=== PATIENT | male | born 1965 | race Hispanic/Latino ===

== ENCOUNTER 2023-05-25 12:36 | Inpatient (IN) | payer OTHER ==
[2023-05-25] MEDS: Meropenem 1,000 MG in NA CHLORIDE 0.9% 100 ML IV SCH (09:00)
[2023-05-25 14:44] LABS: Specific Gravity 1.009 (1.005-1.030); Urine Bacteria 20-50 /HPF (<20); Urine Bilirubin NEGATIVE (Negative); Urine Blood 1+ (Negative); Urine Clarity Extremely Turbid (Clear); Urine Color Light-Yellow (Yellow); Urine Glucose NEGATIVE (Negative); Urine Mucus Slight /HPF (None Seen); Urine Protein NEGATIVE (Negative); Urine RBC <5 /HPF (None Seen); Urine Urobilinogen Normal (Normal)
[2023-05-25 14:46] LABS: Absolute Lymphocytes (CBC) 1.4 K/uL (0.7-4.9); Hematocrit 38.3 % (39.6-49.0); Lymphocytes % 27.9 % (15.3-44.8); MCV 89.3 fL (80-100); MPV 7.1 fL (7.6-11.3); Platelets 144 thou/uL (152-406); RBC Red Blood Cell Count 4.29 M/uL (4.33-5.43)
[2023-05-25 14:51] LABS: Protime INR 1.46
[2023-05-25 14:58] LABS: Albumin 3.1 g/dL (3.4-5.0); Bilirubin Total 1.2 mg/dL (0.2-1.0); Potassium 3.8 mEq/L (3.5-5.1); Protein, Total 7.5 g/dL (6.4-8.2)
[2023-05-25] MEDS ORDERED: NA CHLORIDE 0.9% 100 ML ONE (15:29)
[2023-05-25] MEDS ORDERED: Meropenem 1000 MG/VIAL IV ONE (15:29)
--- NOTE | 2023-05-25 15:33 | ER ---
Nurse's Notes [facility] Name: Coleman Goncalves Age: 57 yrs Sex: Male : 1965 Arrival Date: 05/25/2023 Time: 12:36 Bed 18 Private MD: Priscilla Gilliam Diagnosis: UTI/ Urinary tract infection, site not specified-ESBL;Bacteremia Presentation: 05/25 12:54 Chief complaint: Patient states: ESBL urine. Sent for admission and IV antibiotics. ll1 Coronavirus screen: Client denies travel out of the [place] in the last 14 days. At this time, the client does not indicate any symptoms associated with coronavirus-19. Ebola Screen: Patient denies travel to an Ebola-affected area in the 21 days before illness onset. Initial Sepsis Screen: Does the patient meet any 2 criteria? No. Patient's initial sepsis screen is negative. Does the patient have a suspected source of infection? Yes: Dysuria/Frequency/Urgency/UTI. Risk Assessment: Do you want to hurt yourself or someone else? Patient reports no desire to harm self or others. Onset of symptoms was May 15, 2023. 12:54 Method Of Arrival: Ambulatory ll1 12:54 Acuity: JONATHAN 2 ll1 Triage Assessment: 12:55 General: Appears uncomfortable, Behavior is calm, cooperative, appropriate for age. ll1 Pain: Denies pain. Neuro: No deficits noted. Cardiovascular: No deficits noted. Respiratory: No deficits noted. : Reports burning with urination, urgency, urinary frequency. Historical: - Allergies: 12:54 No Known Allergies; ll1 - PMHx: 12:54 GERD; Liver Problem; ll1 - PSHx: 12:54 None; ll1 - Immunization history:: Adult Immunizations up to date. - Social history:: Smoking status: Patient denies any tobacco usage or history of. - Family history:: not pertinent. - Hospitalizations: : No recent hospitalization is reported. Screenin:37 [facility] ED Fall Risk Assessment (Adult) History of falling in the last 3 months, mb9 including since admission No falls in past 3 months (0 pts) Confusion or Disorientation No (0 pts) Intoxicated or Sedated No (0 pts) Impaired Gait No (0 pts) Mobility Assist Device Used No (0 pt) Altered Elimination No (0 pt) Score/Fall Risk Level 0 - 2 = Low Risk Oriented to surroundings, Maintained a safe environment, Educated pt \T\ family on fall prevention, incl call for assistance when getting out of bed. Abuse screen: Denies threats or abuse. Nutritional screening: No deficits noted. Tuberculosis screening: No symptoms or risk factors identified. Assessment: 13:33 Reassessment: No changes from previously documented assessment. Patient and/or family ld1 updated on plan of care and expected duration. Pain level reassessed. 14:00 Reassessment: pt brought back to ER room. mb9 14:38 General: Appears in no apparent distress. Behavior is calm, cooperative. Pain: Denies mb9 pain. Neuro: Bashir Agitation-Sedation Scale (RASS): 0 - Alert and Calm Level of Consciousness is awake, alert, obeys commands, Oriented to person, place, time, situation, Appropriate for age. Cardiovascular: Patient's skin is warm and dry. Rhythm is regular. Respiratory: Airway is patent Respiratory effort is even, unlabored, Respiratory pattern is regular, symmetrical. GI: Abdomen is round non-distended, Bowel sounds present X 4 quads. Abd is soft and non tender X 4 quads. : Reports urinary frequency. EENT: No signs and/or symptoms were reported regarding the EENT system. Derm: Skin is pink, warm \T\ dry. Musculoskeletal: Range of motion: intact in all extremities. 16:09 Reassessment: No changes from previously documented assessment. Patient and/or family mb9 updated on plan of care and expected duration. Pain level reassessed. Patient is alert, oriented x 3, equal unlabored respirations, skin warm/dry/pink. Vital Signs: 12:54 BP 131 / 76; Pulse 68; Resp 17; Temp 97.7; Pulse Ox 98% ; Weight 92.99 kg; Height 5 ft. ll1 10 in. ; Pain 0/10; 14:37 BP 117 / 73; Pulse 67; Resp 18; Pulse Ox 100% on R/A; mb9 16:09 BP 131 / 68; Pulse 63; Resp 18; Pulse Ox 97% on R/A; mb9 12:54 Body Mass Index 29.41 (92.99 kg, 177.8 cm) ll1 12:54 Pain Scale: Adult ll1 ED Course: 12:39 Patient arrived in ED. mr 12:39 Priscilla Gilliam is Private Physician. mr 12:41 Miky Pace MD is Attending Physician. rn 12:53 Arm band placed on. ll1 12:55 Triage completed. ll1 13:04 Radiology exam delayed due to IV insertion attempt and/or patient not having nj appropriate IV at this time. 13:04 Radiology exam delayed due to lab results not completed at this time. (BUN/Creatinine). nj 13:33 Patient placed in an exam room, on a stretcher. ld1 13:56 Radiology exam delayed due to lab results not completed at this time. (BUN/Creatinine). ls3 13:58 Abigail Avitia, GARCÍA is Primary Nurse. mb9 14:15 Inserted saline lock: 20 gauge in right forearm, using aseptic technique. mb9 14:20 First set of blood cultures drawn by me. mb9 14:24 Second set of blood cultures drawn by me. mb9 14:36 EKG done, by ED staff, reviewed by Miky Pace MD. Inserted saline lock: 18 gauge in mb9 left antecubital area, using aseptic technique. 14:37 Placed in gown. Bed in low position. Call light in reach. Side rails up X 1. Client mb9 placed on continuous cardiac and pulse oximetry monitoring. NIBP monitoring applied. library monitor on. Door closed. Noise minimized. 14:37 No provider procedures requiring assistance completed. mb9 14:39 Urinalysis w/ reflexes Sent. mb9 15:28 CT Abd/Pelvis - IV Contrast Only In Process Unspecified. EDMS 15:32 Javy Lopez is Hospitalizing Provider. rn 15:33 Urine Culture Sent. mb9 18:07 Patient admitted, IV remains in place. mb9 18:27 Provided Education on: Need for admit.. cm10 Administered Medications: 15:33 Drug: Meropenem IV 1 grams IV at calculated rate once; (mix in NS 100 mL) Route: IV; mb9 Rate: calculated rate; Site: right forearm; 16:04 Follow up: Response: No adverse reaction; IV Status: Completed infusion mb9 Medication: 14:37 VIS not applicable for this client. mb9 Outcome: 15:33 Decision to Hospitalize by Provider. rn 18:07 Admitted to Tele accompanied by tech, via wheelchair, room 405, with chart, Report mbKeon called to GARCÍA Mendoza 18:07 Condition: stable 18:07 Instructed on the need for admit, 18:28 Patient left the ED. cm10 Signatures: Dispatcher [employer] VIJI BeltranAbigail Reg Reg Miky Pace MD MD rn Jordan, Nathan nj Siler, Lynzie ls3 Whitney Fishman RN RN ll1 Yulia Sung RN RN ld1 Abigail Avitia RN RN mb9 Tiara Tobar RN RN cm10
--- NOTE | 2023-05-25 15:34 | EDPHYS ---
Physician Documentation [facility] Name: Coleman Goncalves Age: 57 yrs Sex: Male : 1965 Arrival Date: 05/25/2023 Time: 12:36 Bed 18 Private MD: Priscilla Gilliam ED Physician Miky Pace HPI: 05/25 13:01 This 57 yrs old Male presents to ER via Ambulatory with complaints of Urinary rn Problem. 13:01 The patient presents with urinary symptoms, dysuria. Onset: The symptoms/episode rn began/occurred 2 week(s) ago. Modifying factors: The symptoms are alleviated by nothing, the symptoms are aggravated by urinating. Associated signs and symptoms: Pertinent negatives: abdominal pain, fever, hematuria. Severity of symptoms: At their worst the symptoms were moderate, in the emergency department the symptoms have improved. The patient has not experienced similar symptoms in the past. Patient sent in by PCP for admission for IV antibiotics. Reports states urine culture after being seen here 2 weeks ago and blood culture showed ESBL. Patient overall feels better except still has urinary symptoms. No fever. No vomiting. Completed course of ciprofloxacin.. Historical: - Allergies: 12:54 No Known Allergies; ll1 - PMHx: 12:54 GERD; Liver Problem; ll1 - PSHx: 12:54 None; ll1 - Immunization history:: Adult Immunizations up to date. - Social history:: Smoking status: Patient denies any tobacco usage or history of. - Family history:: not pertinent. - Hospitalizations: : No recent hospitalization is reported. ROS: 13:01 Constitutional: Negative for fever, chills, and weight loss, Eyes: Negative for injury, rn pain, redness, and discharge, Cardiovascular: Negative for chest pain, palpitations, and edema, Respiratory: Negative for shortness of breath, cough, wheezing, and pleuritic chest pain, Abdomen/GI: Negative for abdominal pain, nausea, vomiting, diarrhea, and constipation, Back: Negative for injury and pain, : Positive for dysuria, negative for hematuria MS/Extremity: Negative for injury and deformity, Skin: Negative for injury, rash, and discoloration, Neuro: Negative for headache, weakness, numbness, tingling, and seizure, Exam: 13:01 Constitutional: This is a well developed, well nourished patient who is awake, alert, rn and in no acute distress. Cardiovascular: Regular rate and rhythm. No pulse deficits. Respiratory: No increased work of breathing, no retractions or nasal flaring. Abdomen/GI: Soft, non-tender Back: No spinal tenderness. No costovertebral tenderness. Full range of motion. MS/ Extremity: Pulses equal, no cyanosis. Neurovascular intact. Full, normal range of motion. Equal circumference. Neuro: Awake and alert, GCS 15 16:43 ECG was reviewed by the Attending Physician. rn Vital Signs: 12:54 BP 131 / 76; Pulse 68; Resp 17; Temp 97.7; Pulse Ox 98% ; Weight 92.99 kg; Height 5 ft. ll1 10 in. ; Pain 0/10; 14:37 BP 117 / 73; Pulse 67; Resp 18; Pulse Ox 100% on R/A; mb9 16:09 BP 131 / 68; Pulse 63; Resp 18; Pulse Ox 97% on R/A; mb9 12:54 Body Mass Index 29.41 (92.99 kg, 177.8 cm) ll1 12:54 Pain Scale: Adult ll1 MDM: 12:41 Patient medically screened. rn 15:31 Differential diagnosis: UTI, ESBL UTI. 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 Consideration of Admission/Observation Patient was admitted/placed on observation. Escalation of care including admission/observation considered. Counseling: I had a detailed discussion with the patient and/or guardian regarding the historical points, exam findings, and any diagnostic results supporting the discharge/admit diagnosis, lab results, the need for further work-up and treatment in the hospital. ED course: Upon chart review shows positive blood cultures and urine cultures for ESBL. Still evidence of UTI and symptomatic. Will admit for IV antibiotics.. 05/25 13:01 Order name: Blood Culture Adult (2) rn 05/25 13:01 Order name: CBC with Diff; Complete Time: 15:26 rn 05/25 13:01 Order name: CMP; Complete Time: 15:26 rn 05/25 13:01 Order name: Lactate w/ 2H reflex if indic.; Complete Time: 15:26 rn 05/25 13:01 Order name: Protime (+inr); Complete Time: 15:26 rn 05/25 13:01 Order name: Ptt, Activated; Complete Time: 15:26 rn 05/25 13:01 Order name: Urinalysis w/ reflexes; Complete Time: 15:26 rn 05/25 14:56 Order name: Urine Culture [facility] 05/25 17:04 Order name: Basic Metabolic Panel [facility] 05/25 17:04 Order name: Basic Metabolic Panel [facility] 05/25 17:04 Order name: CBC with Automated Diff [facility] 05/25 17:04 Order name: CBC with Automated Diff [facility] 05/25 17:04 Order name: Magnesium [facility] 05/25 17:04 Order name: Magnesium [facility] 05/25 17:04 Order name: Phosphorus [facility] 05/25 17:04 Order name: Phosphorus [facility] 05/25 13:01 Order name: CT Abd/Pelvis - IV Contrast Only; Complete Time: 16:43 rn 05/25 13:01 Order name: EKG; Complete Time: 13:01 rn 05/25 17:04 Order name: CONS Physician Consult [facility] 05/25 13:01 Order name: Accucheck; Complete Time: 13:59 rn 05/25 13:01 Order name: Cardiac monitoring; Complete Time: 13:59 rn 05/25 13:01 Order name: EKG - Nurse/Tech; Complete Time: 14:39 rn 05/25 13:01 Order name: IV Saline Lock - Large Bore; Complete Time: 14:39 rn 05/25 13:01 Order name: Labs collected and sent; Complete Time: 14:39 rn 05/25 13:01 Order name: O2 Per Protocol; Complete Time: 13:59 rn 05/25 13:01 Order name: O2 Sat Monitoring; Complete Time: 13:59 rn 05/25 13:01 Order name: Vital Signs; Complete Time: 13:59 rn EC:43 Rate is 66 beats/min. Rhythm is regular. QRS [place] is Normal. WA interval is normal. QRS rn interval is normal. QT interval is normal. No Q waves. T waves are Normal. No ST changes noted. Clinical impression: NSR w/ Non-specific ST/T Changes. Interpreted by me. Reviewed by me. Administered Medications: 15:33 Drug: Meropenem IV 1 grams IV at calculated rate once; (mix in NS 100 mL) Route: IV; mb9 Rate: calculated rate; Site: right forearm; 16:04 Follow up: Response: No adverse reaction; IV Status: Completed infusion mb9 Disposition Summary: 05/25/23 15:33 Hospitalization Ordered Notes: Hospitalization Status: Inpatient Admission rn Provider: Javy Lopez rn Location: Telemetry/MedSurg (Inpatient) rn Condition: Stable rn Problem: new rn Symptoms: are unchanged rn Bed/Room Type: Standard rn Room Assignment: 430(05/25/23 17:42) eb Diagnosis - UTI/ Urinary tract infection, site not specified - ESBL rn - Bacteremia rn Forms: - Medication Reconciliation Form rn - SBAR form rn - Leadership Thank You Letter rn Signatures: Dispatcher [employer] Miky Ramirez MD MD rn Baxter, Heather, RN RN Ary Miner Lynsay RN RN ll1 Abigail Avitia RN RN mb9 Corrections: (The following items were deleted from the chart) 17:21 15:33 rn 17:42 17:21 [facility] eb
--- NOTE | 2023-05-25 16:40 | RAD REPORT ---
EXAM DESCRIPTION: CT - Abdomen Pelvis W Contrast - 05/25/2023 3:26 pm CLINICAL HISTORY: ESBL UTI, s/p ab, still symptomatic COMPARISON: No comparisons TECHNIQUE: Thin cut axial CT imaging of the abdomen and pelvis was performed following intravenous a dministration of 100 mL Isovue 300. Multiplanar reformats were generated and reviewed. All CT scans are performed using dose optimization technique as appropriate and may include automated exposure control or mA/KV adjustment according to patient size. FINDINGS: No suspicious findings in the lung bases. The liver demonstrates nodular contour or and caudate lobe hypertrophy compatible with cirrhosis. Spl een is enlarged, measuring 16 cm in long axis. Colonization material is seen along the superficial lo wer right liver lobe and along the left gastrosplenic space. Portosystemic varicosities present in th e gastrosplenic region and along the distal esophagus. Adrenal glands and pancreas show no suspicious findings. Gallbladder and biliary tree are also without suspicious finding. Symmetric renal function is seen with no hydronephrosis or suspicious renal mass. No dilated bowel loops or bowel wall thickening. No free air, free fluid or inflammatory stranding. N o hernia, mass or bulky lymphadenopathy. The urinary bladder is decompressed limiting evaluation. No suspicious bony findings. IMPRESSION: No acute intra-abdominal process. Stigmata of cirrhosis, splenomegaly, and portal hypertension.
[2023-05-25] MEDS: NA CHLORIDE 0.9% 1,000 ML IV SCH (18:38)
--- NOTE | 2023-05-25 19:26 | P.HP ---
Certification for Inpatient Patient admitted to: Inpatient With expected LOS: >2 Midnights Patient will require the following post-hospital care: None Practitioner: I am a practitioner with admitting privileges, knowledge of patient current condition, hospital course, and medical plan of care. Services: Services provided to patient in accordance with Admission requirements found in Title 42 Section 412.3 of the Code of Federal Regulations Patient History Date of Service: 05/25/23 Reason for admission: ESBL in blood and urine culture History of Present Illness: Coleman Goncalves is a 57 year old male with Pmhx of GERD and liver Cirrhosis who presents to the ED with ESBL found on outside facility blood and urine culture. He reports finishing ciprofloxacin outpatient but has continued urinary symptoms of frequency and urgency as well as feeling weak. His PCP sent him to the ED for IV antibiotics. On examination, he is afebrile, hemodynamically stable, and on RA. Initial vitals: BP 131 / 76; Pulse 68; Resp 17; Temp 97.7; Pulse Ox 98% ; Weight 92.99 kg; Significant laboratory values WBC 5.10, H/H 13.2/38.3, Platelts 144, Tbili 1.2, AST 44, albumin 3.1, UA with leukocyte Esterase 500, WBC greater than 50, bacteria 20-50. CT abd/pelvis reports "No acute intra-abdominal process. Stigmata of cirrhosis, splenomegaly, and portal hypertension." Coleman will be admitted to hospitalist service for further evaluation and treatment of ESBL. Allergies No Known Allergies Allergy (Unverified 05/25/23 18:24) Home Medications: Lactulose 30 ml PO DAILY 05/25/23 Pantoprazole Sodium [Protonix] 1 tab PO DAILY 05/25/23 - Past Medical/Surgical History -: Cirrhosis -: GERD Past Surgical History: Reviewed- Non-Contributory - Social History Smoking Status: Never smoker Alcohol use: No CD- Drugs: No Review of Systems General: Weakness Genitourinary: Frequency, Urgency Physical Examination - Vital Signs Temperature: 97.4 F Blood Pressure: 125/60 Pulse: 59 Respirations: 16 Pulse Ox (%): 97 - Physical Exam General: Alert, In no apparent distress, Oriented x3 HEENT: Atraumatic, Normocephalic, PERRLA Neck: Supple, 2+ carotid pulse no bruit, JVD not distended Respiratory: Clear to auscultation bilaterally, Normal air movement Cardiovascular: No edema, Normal pulses, Regular rate/rhythm, Normal S1 S2 Capillary refill: <2 Seconds Gastrointestinal: Normal bowel sounds, Soft and benign Musculoskeletal: No clubbing, No swelling, No contractures Integumentary: No rashes, No breakdown Neurological: Normal speech, Normal strength at 5/5 x4 extr, Normal tone - Studies Laboratory Data (last 24 hrs) 05/25/23 05/25/23 05/25/23 14:24 14:24 14:24 WBC 5.10 Hgb 13.2 L Hct 38.3 L Plt Count 144 L PT 15.9 H INR 1.46 APTT 34.7 Sodium 139 Potassium 3.8 BUN 10 Creatinine 0.89 Glucose 105 Total Bilirubin 1.2 H AST 44 H ALT 50 Alkaline Phosphatase 92 Assessment and Plan - Plan Assessment and Plan ESBL in blood and urine culture Urinary tract infection (POA) Blood and urine cultures redrawn today in the ED Merrem started in the ED, will continue infectious disease consulted IVF PICC line when blood culture is clear History of Cirrhosis Restart home lactulose GERD Restart home protonix 40 mg daily DVT ppx lovenox Full code LOS >72 hours Discharge Plan: Home Plan to discharge in: 72 Hours - Advance Directives Does patient have a Living Will: No Does patient have a Durable POA for Healthcare: No Time Spent Managing Pts Care (In Minutes): 50
[2023-05-25] MEDS ORDERED: LACTULOSE 20 GM/30 ML UCUP PO PRN (19:53)
[2023-05-26 07:28] LABS: Absolute Lymphocytes (CBC) 1.3 K/uL (0.7-4.9); Hematocrit 38.7 % (39.6-49.0); MCV 90.6 fL (80-100); MPV 7.2 fL (7.6-11.3); Platelets 128 thou/uL (152-406); RBC Red Blood Cell Count 4.28 M/uL (4.33-5.43)
[2023-05-26 07:35] LABS: Magnesium 2.3 mg/dL (1.6-2.4); Phosphorus 3.1 mg/dL (2.5-4.9); Potassium 4.1 mEq/L (3.5-5.1)
[2023-05-26] MEDS: PANTOPRAZOLE 40MG TABLET PO SCH (08:49)
[2023-05-26] MEDS: ENOXAPARIN 40 MG/0.4 ML SQ SCH (08:50)
--- NOTE | 2023-05-26 10:32 | P.PN ---
Date of Service: 05/26/23 Subjective Ambulating independently in his room. Understands need for PICC line Following blood and urine cultures, afebrile ROS 10 point ROS as noted above, otherwise negative Physical Exam General: AAO x3, NAD HEENT: Atraumatic, Normocephalic, PERRLA Neck: Supple, 2+ carotid pulse no bruit, JVD not distended Respiratory: Clear to auscultation bilaterally, Normal air movement Cardiovascular: No edema, Normal pulses, RRR, Normal S1 S2, No murmur noted Capillary refill: <2 Seconds Gastrointestinal: Normal bowel sounds, Soft and benign, NT on palpation, Distended (obese Musculoskeletal: No clubbing, No swelling, No contractures Integumentary: No rashes, No breakdown Neurological: Normal speech, Normal strength at 5/5 x4 extr, Normal tone Vitals Reviewed Problem list ESBL in blood and urine culture Urinary tract infection (POA) History of Cirrhosis GERD Assessment and Plan ESBL in blood and urine culture Urinary tract infection (POA) Blood and urine cultures redrawn today in the ED Urine culture results with mixed ward, 3+ gram-negative rods Blood culture still pending Merrem started in the ED, will continue infectious disease consulted IVF stopped today PICC line when blood culture is clear History of Cirrhosis Restart home lactulose GERD Restart home protonix 40 mg daily DVT ppx lovenox Full code LOS 48 hours <Elisa Whipple - Last Filed: 05/26/23 10:33> Patient seen and examined, plan of care discussed with Ms. Anny Whipple. History of ESBL E. coli UTI and bacteremia. Patient is currently asymptomatic. Follow blood culture result. PICC line once blood cultures shows no growth. Continue IV meropenem as inpatient. <matthew bello - Last Filed: 05/26/23 17:50>
[2023-05-26 18:56] VITALS: BMI 30.7
[2023-05-27 10:13] VITALS: O2SAT 95
[2023-05-27] MEDS: Mupirocin NASAL 2 APPL/1 GM TUBE NAS SCH (10:59)
--- NOTE | 2023-05-27 14:22 | RAD REPORT ---
EXAM DESCRIPTION: RAD - Chest Single View - 05/27/2023 2:06 pm CLINICAL HISTORY: Device placement PICC line placement . IMPRESSION: PICC line with its tip in the mid superior vena cava
--- NOTE | 2023-05-27 16:31 | P.PN ---
Date of Service: 05/27/23 Subjective Continues to feel well, no urinary symptoms PICC line placed, tolerated well ROS 10 point ROS as noted above, otherwise negative Physical Exam General: NAD, alert and oriented x 3, calm and cooperative HEENT: Atraumatic, Normocephalic, PERRLA Neck: Supple, 2+ carotid pulse no bruit, JVD not distended Respiratory: Clear to auscultation bilaterally, Normal air movement Cardiovascular: Regular rate and rhythm, normal pulses, S1 S2 present, No murmur noted Capillary refill: <2 Seconds Gastrointestinal: Normal bowel sounds, Soft and benign, NT on palpation, Distended (obese) Musculoskeletal: No clubbing, No swelling, No contractures Extremity: PICC in RUE Integumentary: No rashes, No breakdown Neurological: Normal speech, Normal strength at 5/5 x4 extr, Normal tone Vitals Reviewed Problem list ESBL in blood and urine culture Urinary tract infection (POA) History of Cirrhosis GERD Assessment and Plan ESBL in blood and urine culture Urinary tract infection (POA) Blood and urine cultures redrawn today in the ED Urine culture results with ESBL Blood culture NGTD Merrem started in the ED, will continue infectious disease consulted PICC line placed today 05/27 History of Cirrhosis Restart home lactulose GERD Restart home protonix 40 mg daily DVT ppx lovenox Full code LOS 24 hours- home with HH/SN for IV antibiotics
--- NOTE | 2023-05-27 23:00 | CON ---
History Of Present Illness: This is a 57-year-old male. I was consulted for evaluation of ESBL bact eremia and urinary tract infection. The patient initially had bacteremia which was treated with Cipr o, later was found to have ESBL infection. The patient was seen by primary care doctor because he wa s having urinary tract infection symptoms including abdominal pain, burning urination. He was sent b ack to the hospital for further care. Current urine cultures are growing E. coli ESBL more than 100, 000. Lab data is showing WBC on admission 5.1, hemoglobin 13.2, platelets 144. CBC today is 3.9, he moglobin 13.1, platelets are 128. His chemistry shows BUN of 10, creatinine 0.8. 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 Past Surgical History: Includes questionable aortic arch surgery. The patient was not able to recal l exact surgery. Social History: Nonsmoker. He used to have any alcohol use. Medications: Include meropenem. See MAR for other medications. Allergies: NO KNOWN DRUG ALLERGIES. Review of Systems: A 10-point review was performed. Physical Examination: General: This is a 57-year-old male lying in bed. is by the bedside. VITAL SIGNS: Temperature 98, pulse 55, respiration 15, blood pressure 103/59. HEENT: Unremarkable. Neck: Supple. Lungs: Basal crackles. Heart: S1, S2. Regular. Abdomen: Soft, nontender. Bowel sounds present. Extremities: No edema. Laboratory Data: Reviewed. Assessment And Plan: This is a 57-year-old male with significant past medical history of liver cirrh osis secondary to alcohol abuse, coming in with urinary tract infection and bacteremia secondary to E SBL. Current blood cultures are negative. Only urine cultures are growing ESBL E. coli. As the pat ient was not treated properly for bacteremia, I would recommend to continue carbapenem for total of 1 0 days and repeat urinalysis as the patient has liver cirrhosis. Monitor CBC, CMP, and liver functio n biweekly while the patient is on antibiotic. No other recommendation at this time. NF/MODL Voice ID: [id number] Report ID: [id number]
[2023-05-28] MEDS: ERTAPENEM SODIUM 1 GM VIAL IVPB SCH (09:00)
--- NOTE | 2023-05-28 09:24 | P.PN ---
Subjective Date of Service: 05/28/23 Chief Complaint: ESBL in blood and urine culture Subjective: No new changes, No C/O voiced Review of Systems 10-point ROS is otherwise unremarkable Physical Examination - Vital Signs Temperature: 97.8 F Blood Pressure: 113/58 Pulse: 56 Respirations: 15 Pulse Ox (%): 96 - Physical Exam General: Alert, In no apparent distress HEENT: Atraumatic, Normocephalic Respiratory: Normal air movement Cardiovascular: Regular rate/rhythm Gastrointestinal: Normal bowel sounds, Soft and benign - Studies Microbiology Data (last 24 hrs): 05/25/23 14:22 Clean Catch Urine [place] Count - Final >100,000 CFU/ML. 05/25/23 14:22 Clean Catch Urine - Final Escherichia Coli Esbl Assessment And Plan - Plan Problem List Gram negative bacteremia secondary to urinary tract infection Cirrhosis GERD Gram negative bacteremia secondary to urinary tract infection - Urine culture 05/25: E.coli ESBL - Blood culture 05/24: no growth to date - Recent blood culture 05/11: E.coli ESBL - Currently on Meropenem (started 05/25) Afebrile. Recommendations - Due to previous blood cultures on 05/11 growing E.coli ESBL and current urine culture still with E.coli ESBL, not properly treated; recommend continuing antibiotic therapy with Meropenem (or Ertapenem) for 10 days (05/25-06/03) - midline/PICC placement for outpatient IV antibiotic - Continue supportive care Case discussed with Hernan Desai
[2023-05-28 11:42] LABS: Specific Gravity 1.018 (1.005-1.030); Urine Bilirubin NEGATIVE (Negative); Urine Blood Negative (Negative); Urine Clarity Clear (Clear); Urine Color Yellow (Yellow); Urine Glucose NEGATIVE (Negative); Urine Protein NEGATIVE (Negative); Urine Urobilinogen Normal (Normal)
--- NOTE | 2023-05-28 14:32 | P.PN ---
Date of Service: 05/28/23 Subjective Feels well, tolerating IV antibiotics ambulating independently tolerating PO diet ROS 10 point ROS as noted above, otherwise negative Physical Exam General: AAOx3, NAD HEENT: Atraumatic, Normocephalic, PERRLA Neck: Supple, 2+ carotid pulse no bruit, JVD not distended Respiratory: Clear to auscultation bilaterally, Normal air movement, symmetrical chest wall movement Cardiovascular: RRR, S1 S2 present, No murmur noted Capillary refill: <2 Seconds Gastrointestinal: Normoactive bowel sounds, Soft/benign/NT on palpation, Distended (obese) Musculoskeletal: No clubbing, No swelling, No contractures, 2+ peripheral pulses Extremity: PICC in RUE Integumentary: No rashes, No breakdown Neurological: Normal speech, Normal strength at 5/5 x4 extr, Normal tone Vitals Reviewed Problem list ESBL in blood and urine culture Urinary tract infection (POA) History of Cirrhosis GERD Assessment and Plan ESBL in blood and urine culture Urinary tract infection (POA) Blood and urine cultures redrawn today in the ED Urine culture results with ESBL Blood culture NGTD Merrem changed to Invanz for ten days infectious disease consulted PICC line placed today 05/27 History of Cirrhosis home lactulose GERD home protonix 40 mg daily DVT ppx lovenox Full code LOS 24 hours- home with HH/SN for IV antibiotics
--- NOTE | 2023-05-28 14:38 | EKG ---
Test Date: 2023-05-25 Test Time: 14:31:40 Wheel And Axle Inspector: MB MEASUREMENT RESULTS: Intervals: Rate: 66 HI: 168 QRSD: 82 QT: 410 QTc: 429 [place]: P: 41 HI: 168 QRS: 56 T: 45 INTERPRETIVE STATEMENTS: Normal sinus rhythm Possible Anterior infarct, age undetermined Abnormal ECG No previous ECG available for comparison Electronically Signed On 05-28-23 14:29:43 [employer]IDE [employer] by Flo Gann
[2023-05-28] MEDS: Meropenem 1,000 MG in NA CHLORIDE 0.9% 100 ML IV SCH (16:01)
[2023-05-28 17:22] VITALS: BP 107/60; TEMP 98.1
[2023-05-28] MEDS: ERTAPENEM NA 1 GM in NA CHLORIDE 0.9% 100 ML IVPB ONE (17:22)
--- NOTE | 2023-05-28 19:31 | P.DS ---
Admission Date: 05/25/23 Discharge Date: 05/28/23 Disposition: DC HOME/HOME HEALTH CARE Discharge Condition: GOOD Reason for Admission: ESBL in blood and urine culture Brief History of Present Illness: Diagnosis ESBL in blood and urine culture Urinary tract infection (POA) History of Cirrhosis GERD HPI 05/25/23 Coleman Goncalves is a 57 year old male with Pmhx of GERD and liver Cirrhosis who presents to the ED with ESBL found in blood and urine culture sent 05/11/23 while in the ED. He reports finishing ciprofloxacin outpatient but has continued urinary symptoms of frequency and urgency as well as feeling weak. His PCP sent him to the ED for IV antibiotics. On examination, he is afebrile, hemodynamically stable, and on RA. Initial vitals: BP 131 / 76; Pulse 68; Resp 17; Temp 97.7; Pulse Ox 98% ; Weight 92.99 kg; Significant laboratory values WBC 5.10, H/H 13.2/38.3, Platelts 144, Tbili 1.2, AST 44, albumin 3.1, UA with leukocyte Esterase 500, WBC greater than 50, bacteria 20-50. CT abd/pelvis reports "No acute intra-abdominal process. Stigmata of cirrhosis, splenomegaly, and portal hypertension." Coleman will be admitted to hospitalist service for further evaluation and treatment of ESBL. Hospital Course: Coleman Goncalves is a pleasant 57 year old male with a past medical history significant for GERD and liver Cirrhosis who was admitted to the [facility] on 05/25/23 for ESBL in blood and urine culture taken 05/11/23 while in the ED. Coleman Goncalves presented to the ED with chief complaint of ESBL found in his blood and urine culture. He has tolerated IV antibiotics through his PICC line. He will be discharged home with long term to assist and monitor IV antibiotic use daily. He will follow up with lab work biweekly during antibiotic administration. He has remained afebrile, hemodynamically stable, ambulating independently, tolerating p.o. diet, and repeat urine culture is negative for infectious process. He is ready for discharge with [facility] long term to assist with IV antibiotic use. On 05/28/23, Coleman was seen on morning rounds and deemed medically stable for discharge. Coleman was discharged with instructions to schedule follow-up appointments with PCP. Coleman was prescribed IV antibiotic, Invanz. The patient and family members were given the opportunity to ask questions and reported no further questions. Furthermore, all questions were answered to the best of my ability. A copy of this discharge summary will be sent to the above providers to facilitate continuity of care. Today, I personally spent 50 minutes with Coleman, of which greater than 50% of the time was spent in patient education, counseling, and coordination of care as described above. Physical Exam General: Alert and oriented x3, NAD HEENT: Atraumatic, Normocephalic, PERRLA Neck: Supple, trachea midline, 2+ carotid pulse no bruit, JVD not distended Respiratory: Clear to auscultation bilaterally, Normal air movement on RA, symmetrical chest wall movement Cardiovascular: Regular rate and rhythm, Normal S1 S2 present, No murmur noted Capillary refill: <2 Seconds Gastrointestinal: Normoactive bowel sounds, Soft/benign/NT on palpation, Distended (obese) Musculoskeletal: No clubbing, No swelling, No contractures, 2+ peripheral pulses Extremity: PICC in RUE Integumentary: No rashes, No breakdown Neurological: Normal speech, Normal strength at 5/5 x4 extr, Normal tone Vital Signs/Physical Exam: Temp Pulse Resp BP Pulse Ox 98.1 F 63 18 107/60 96 05/28/23 16:00 05/28/23 16:00 05/28/23 16:00 05/28/23 16:00 05/28/23 16:00 Laboratory Data at Discharge: WBC 3.90 thou/uL (4.3-10.9) L 05/26/23 06:54 Hgb 13.1 g/dL (13.6-17.9) L 05/26/23 06:54 Hct 38.7 % (39.6-49.0) L 05/26/23 06:54 Plt Count 128 thou/uL (152-406) L 05/26/23 06:54 PT 15.9 SECONDS (9.5-12.5) H 05/25/23 14:24 INR 1.46 05/25/23 14:24 APTT 34.7 SECONDS (24.3-36.9) 05/25/23 14:24 Sodium 139 mEq/L (136-145) 05/26/23 06:54 Potassium 4.1 mEq/L (3.5-5.1) 05/26/23 06:54 BUN 10 mg/dL (7-18) 05/26/23 06:54 Creatinine 0.69 mg/dL (0.70-1.30) L 05/26/23 06:54 Glucose 100 mg/dL (74-106) 05/26/23 06:54 Phosphorus 3.1 mg/dL (2.5-4.9) 05/26/23 06:54 Magnesium 2.3 mg/dL (1.6-2.4) 05/26/23 06:54 Total Bilirubin 1.2 mg/dL (0.2-1.0) H 05/25/23 14:24 AST 44 U/L (15-37) H 05/25/23 14:24 ALT 50 U/L (16-61) 05/25/23 14:24 Alkaline Phosphatase 92 U/L (45-117) 05/25/23 14:24 Home Medications: Lactulose 30 ml PO DAILY 05/25/23 Pantoprazole Sodium [Protonix] 1 tab PO DAILY 05/25/23 Pantoprazole [Protonix Tab*] 40 mg PO DAILY tab 05/28/23 Physician Discharge Instructions: Coleman Goncalves presented to the ED with chief complaint of ESBL found in his blood and urine culture. He has tolerated IV antibiotics through his PICC line. He will be discharged home with long term to assist and monitor IV antibiotic use daily. He will follow up with lab work biweekly during antibiotic administration. 1. Follow up with PCP and with Lab work biweekly during IV antibiotic administration 2. continue regular diet 3. no activity restrictions 4. return to the ED if symptoms worsen 5. no new medications this admission continue home medications lactulose and protonix Home Health arranged: [facility] ([employer]) P:[phone] F:[phone] IV infusion company arranged for home IV antibiotics: [id number], [place] [address] P/ [place]: [phone] F Diet: Regular Activity: Ad ankit Followup: Priscilla Gilliam MD [Primary Care Provider] - 1-2 Weeks (call to schedule an appointment) Time spent managing pt's care (in minutes): 50
== END 2023-05-28 19:04 | disposition home health service (06) | DRG 690 ==
LOC: ER 12:36 → ERHOLD 16:58 → 4TH 17:54
PROVIDERS: ADMIT Internal Medicine; ATTEND Internal Medicine
PROC: 02HV33Z Insertion of Infusion Device into Superior Vena Cava, Percutaneous Approach (ICD-10-PCS; principal; 2023-05-27)
DX: N39.0 Urinary tract infection, site not specified (principal); Z16.12 Extended spectrum beta lactamase (ESBL) resistance; R78.81 Bacteremia; K21.9 Gastro-esophageal reflux disease without esophagitis; K70.30 Alcoholic cirrhosis of liver without ascites; B96.20 Unspecified Escherichia coli [E. coli] as the cause of diseases classified elsewhere; Z79.899 Other long term (current) drug therapy
CPT/HCPCS: 36415; 71045; 74177; 80048; 80053; 81001; 81003; 83605; 83735; 84100; 85025; 85610; 85730; 87040; 87077; 87086; 87088; 87186; 93005; 96365; 99285; J1335; J1650; J2185; J7030; Q9967

== ENCOUNTER 2023-06-22 12:50 | Observation (INO) | payer OTHER ==
[2023-06-22 13:23] LABS: Specific Gravity 1.008 (1.005-1.030); Sqamous Epithelial <5 /HPF (None Seen); Urine Bacteria None Seen /HPF (<20); Urine Bilirubin NEGATIVE (Negative); Urine Blood Trace (Negative); Urine Clarity Clear (Clear); Urine Color Light-Yellow (Yellow); Urine Culture Reflex Order NOT NEEDED; Urine Glucose NEGATIVE (Negative); Urine Ketones NEGATIVE (Negative); Urine Microscopic Reflex YN ORDER UMIC; Urine Nitrite NEGATIVE (Negative); Urine Protein NEGATIVE (Negative); Urine RBC <5 /HPF (None Seen); Urine Urobilinogen Normal (Normal); Urine WBC <5 /HPF (<5)
[2023-06-22 13:27] LABS: Absolute Basophils 0.1 K/uL (0-0.5); Absolute Eosinophils 0.4 K/uL (0-0.5); Absolute Lymphocytes (CBC) 1.8 K/uL (0.7-4.9); Absolute Monocytes 0.6 K/uL (0.1-1.3); Absolute Neutrophil 5.4 K/uL (1.8-8.0); Basophils % 0.7 % (0-1.3); Eosinophils % 5.2 % (0-4.4); Hematocrit 40.8 % (39.6-49.0); Hemoglobin 13.9 g/dL (13.6-17.9); Lymphocytes % 21.2 % (15.3-44.8); MCH 30.7 pg (27.0-35.0); MCHC 34.2 g/dL (32.0-36.0); MCV 89.9 fL (80-100); MPV 7.7 fL (7.6-11.3); Monocytes % 7.8 % (3.3-12.3); Neutrophils % 65.1 % (41.7-73.7); Platelets 155 thou/uL (152-406); RBC Red Blood Cell Count 4.54 M/uL (4.33-5.43); Red Cell Distribution Width 13.8 % (12.1-15.2)
[2023-06-22 13:40] LABS: Albumin 3.3 g/dL (3.4-5.0); Albumin/Globulin Ratio 0.8 (1.1-1.8); Anion Gap 7.7 mEq/L (5.0-15.0); Bilirubin Total 1.1 mg/dL (0.2-1.0); Globulin 4.4 g/dL (2.3-3.5); Potassium 3.7 mEq/L (3.5-5.1); Protein, Total 7.7 g/dL (6.4-8.2)
[2023-06-22] MEDS ORDERED: ONDANSETRON 4 MG/2 ML VIAL ONE (14:00)
[2023-06-22] MEDS ORDERED: MORPHINE 4 MG/ML SYR ONE (14:00)
[2023-06-22] MEDS ORDERED: FAMOTIDINE 20 MG/2 ML VIAL IV ONE (14:00)
[2023-06-22] MEDS ORDERED: NA CHLORIDE 0.9% 1,000 ML ONE (14:00)
--- NOTE | 2023-06-22 14:11 | RAD REPORT ---
EXAM DESCRIPTION: CTAbdomen Pelvis W Contrast - 06/22/2023 2:00 pm CLINICAL HISTORY: Abdominal pain. ABD PAIN COMPARISON: Abdomen Pelvis W Contrast dated 05/25/2023 TECHNIQUE: Biphasic CT imaging of the abdomen and pelvis was performed with 100 ml non-ionic IV cont rast. All CT scans are performed using dose optimization technique as appropriate and may include automated exposure control or mA/KV adjustment according to patient size. FINDINGS: The lung bases are clear. The liver is prominent in size with a heterogenous fatty infiltration and any significant nodular con tour compatible with cirrhosis. Moderate splenomegaly is present. Portal venous collaterals are prese nt left upper quadrant. The pancreas, adrenal glands and kidneys are within normal limits. No bowel obstruction, free air, free fluid or abscess. Throughout the visualized colon there is miguel surrounding inflammation this is particularly prominent transverse, descending and rectosigmoid colo n. The appendix is normal. No evidence of significant lymphadenopathy. No suspicious bony findings. IMPRESSION: There is a colitis pattern present which is [id number] in severity involving the t ransverse colon as well as the descending colon and rectosigmoid colon. No pneumatosis coli. Findings could be infectious, inflammatory or related to portal colopathy. Followup colonoscopy would be advi sed. Prominent liver cirrhosis is present without ascites.
[2023-06-22] MEDS ORDERED: CIPROFLOXACIN 400mg IV 400 MG/200 ML BAG IV ONE (15:19)
[2023-06-22] MEDS ORDERED: METRONIDAZOLE 500mg IVPB 500 MG/100 ML BAG IV ONE (15:20)
[2023-06-22 15:43] LABS: PT Prothrombin Time 15.7 SECONDS (9.5-12.5); Protime INR 1.44
--- NOTE | 2023-06-22 15:45 | ER ---
Nurse's Notes [facility] Name: Coleman Goncalves Age: 57 yrs Sex: Male : 1965 Arrival Date: 06/22/2023 Time: 12:50 Bed 8 Private MD: Priscilla Gilliam Diagnosis: Epigastric abdominal tenderness;Left sided colitis;Vomiting;Unspecified cirrhosis of liver-ADVANCED Presentation: 06/21 12:59 Chief complaint: Patient states: was here a month ago with a UTI and E. Coli was put on iw antibiotics for 10 days, it didn't work and he had to come back for IV antibiotics, started having pain in lower abd and having frequent BM but not diarrhea about 2 weeks ago , UTI symptoms have resolved. Coronavirus screen: Client presents with at least one sign or symptom that may indicate coronavirus-19. Ebola Screen: Patient negative for fever greater than or equal to 101.5 degrees Fahrenheit, and additional compatible Ebola Virus Disease symptoms Patient denies exposure to infectious person. Patient denies travel to an Ebola-affected area in the 21 days before illness onset. No symptoms or risks identified at this time. Initial Sepsis Screen: Does the patient meet any 2 criteria? No. Patient's initial sepsis screen is negative. Does the patient have a suspected source of infection? No. Patient's initial sepsis screen is negative. Risk Assessment: Do you want to hurt yourself or someone else? Patient reports no desire to harm self or others. Onset of symptoms was June 08, 2023. 12:59 Method Of Arrival: Ambulatory iw 12:59 Acuity: JONATHAN 3 iw Historical: - Allergies: 13:02 No Known Allergies; iw - PMHx: 13:02 GERD; Liver Problem; iw - PSHx: 13:02 None; iw - Immunization history:: Adult Immunizations Adult Immunizations up to date. - Social history:: Smoking status: Patient denies any tobacco usage or history of. Screenin:05 [facility] ED Fall Risk Assessment (Adult) History of falling in the last 3 months, mb9 including since admission No falls in past 3 months (0 pts) Confusion or Disorientation No (0 pts) Intoxicated or Sedated No (0 pts) Impaired Gait No (0 pts) Mobility Assist Device Used No (0 pt) Altered Elimination No (0 pt) Score/Fall Risk Level 0 - 2 = Low Risk Oriented to surroundings, Maintained a safe environment, Educated pt \T\ family on fall prevention, incl call for assistance when getting out of bed. Abuse screen: Denies threats or abuse. Nutritional screening: No deficits noted. Tuberculosis screening: No symptoms or risk factors identified. Assessment: 14:24 General: Appears in no apparent distress. Behavior is calm, cooperative. Pain: mb9 Complains of pain in abdomen Pain does not radiate. Pain currently is 8 out of 10 on a pain scale. Quality of pain is described as throbbing, Pain began 2-3 days ago. Is intermittent. Neuro: Bashir Agitation-Sedation Scale (RASS): 0 - Alert and Calm Level of Consciousness is awake, alert, obeys commands, Oriented to person, place, time, situation, Appropriate for age. Cardiovascular: Patient's skin is warm and dry. Respiratory: Airway is patent Respiratory effort is even, unlabored, Respiratory pattern is regular, symmetrical, Breath sounds are clear bilaterally. GI: Abdomen is round non-distended, Bowel sounds present X 4 quads. Abd is soft Abdomen is tender to palpation in right lower quadrant and left lower quadrant Reports intolerance of fluids, intolerance of food, nausea. : No signs and/or symptoms were reported regarding the genitourinary system. EENT: No signs and/or symptoms were reported regarding the EENT system. Derm: Skin is pink, warm \T\ dry. Musculoskeletal: Range of motion: intact in all extremities. 15:54 Reassessment: No changes from previously documented assessment. Patient and/or family mb9 updated on plan of care and expected duration. Pain level reassessed. Patient is alert, oriented x 3, equal unlabored respirations, skin warm/dry/pink. Vital Signs: 12:59 BP 148 / 92; Pulse 79; Resp 16; Temp 98.1; Pulse Ox 99% on R/A; Weight 92.99 kg; Height iw 5 ft. 10 in. ; Pain 4/10; 14:50 BP 128 / 88; Pulse 70; Resp 18; Pulse Ox 100% on R/A; mb9 16:03 BP 133 / 79; Pulse 81; Resp 16; Pulse Ox 100% on R/A; kd3 12:59 Body Mass Index 29.41 (92.99 kg, 177.8 cm) iw 12:59 Pain Scale: Adult iw Nori Coma Score: 16:31 Eye Response: spontaneous(4). Motor Response: obeys commands(6). Verbal Response: maria dolores oriented(5). Total: 15. ED Course: 12:52 Patient arrived in ED. rg4 12:52 Priscilla Gilliam is Private Physician. rg4 12:53 Kenan Segundo MD is Attending Physician. maria dolores 13:02 Triage completed. iw 13:02 Arm band placed on. iw 13:12 CBC with Diff Sent. kd3 13:13 CMP Sent. kd3 13:13 Lipase Sent. kd3 13:13 Urinalysis w/ reflexes Sent. kd3 13:13 Initial lab(s) drawn, by ok, sent to lab. Urine collected: clean catch specimen, clear. kd3 Inserted saline lock: 20 gauge in left antecubital area, using aseptic technique. Blood collected. 13:50 Abigail Avitia, RN is Primary Nurse. mb9 14:02 CT Abd/Pelvis - IV Contrast Only In Process Unspecified. EDMS 14:[address] via wheelchair. mb9 14:05 Placed in gown. Bed in low position. Call light in reach. Side rails up X 1. Client mb9 placed on continuous cardiac and pulse oximetry monitoring. NIBP monitoring applied. Door closed. Noise minimized. Warm blanket given. 15:44 Margarito Hebert MD is Hospitalizing Provider. maria dolores 16:03 No provider procedures requiring assistance completed. kd3 16:04 EKG done, by ED staff, reviewed by Kenan Segundo MD. kd3 Administered Medications: 14:08 Drug: Ondansetron IVP 4 mg IVP once; over 2 minutes Route: IVP; Site: left antecubital; mb9 17:00 Follow up: Response: No adverse reaction mb9 14:10 Drug: Famotidine IVP 20 mg IVP once; dilute with 10 mL 0.9% NaCl; give over 2 minutes mb9 Route: IVP; Site: left antecubital; 15:00 Follow up: Response: No adverse reaction mb9 14:12 Drug: NS 0.9% IV 1000 ml IV at 1 bolus Per protocol; 1000 mL bolus Route: IV; Rate: 1 mb9 bolus; Site: left antecubital; 16:00 Follow up: Response: No adverse reaction mb9 17:00 Follow up: Response: No adverse reaction; IV Status: Completed infusion mb9 14:13 Drug: morphine IVP or IV 4 mg IVP once over 4 mins Route: IVP; Infused Over: 4 mins; mb9 Site: left antecubital; 20:40 Follow up: Urine output 1700 ml mb9 15:32 Drug: metroNIDAZOLE IVPB 500 mg 100 ml IVPB at 200 ml/hr once over 30 mins Volume: 100 kd3 ml; Route: IVPB; Rate: 200 ml/hr; Infused Over: 30 mins; Site: right antecubital; 16:03 Follow up: Response: No adverse reaction; IV Status: Completed infusion kd3 16:03 Drug: Ciprofloxacin IVPB 400 mg 200 ml IVPB once over 60 mins Volume: 200 ml; Route: kd3 IVPB; Infused Over: 60 mins; Site: left antecubital; 17:10 Follow up: Response: No adverse reaction; IV Status: Completed infusion mb9 Medication: 14:05 VIS not applicable for this client. mb9 Output: 20:40 Urine: 1700ml; Total: 1700ml. mb9 Outcome: 15:44 Decision to Hospitalize by Provider. maria dolores 18:06 Patient left the ED. mb9 Signatures: Dispatcher [employer] EDKenan Maya MD MD cha Williams, Irene, RN RN iw Garcia, Rubi rg4 Sherri Haas RN RN kd3 Abigail Avitia RN RN mb9
--- NOTE | 2023-06-22 15:45 | EDPHYS ---
Physician Documentation [facility] Name: Coleman Goncalves Age: 57 yrs Sex: Male : 1965 Arrival Date: 06/22/2023 Time: 12:50 Bed 8 Private MD: Priscilla Gilliam ED Physician Kenan Segundo HPI: 06/21 15:36 This 57 yrs old Male presents to ER via Ambulatory with complaints of maria dolores Abdominal Pain. 15:36 The patient presents with abdominal pain in the upper abdomen, in the lower abdomen. maria dolores Onset: The symptoms/episode began/occurred 7 day(s) ago. The symptoms do not radiate. Associated signs and symptoms: Pertinent positives: diarrhea, nausea. The symptoms are described as constant, crampy. Modifying factors: The symptoms are alleviated by nothing, the symptoms are aggravated by food. Severity of pain: At its worst the pain was mild moderate in the emergency department the pain is unchanged. The patient has experienced similar episodes in the past, multiple times. Historical: - Allergies: 13:02 No Known Allergies; iw - PMHx: 13:02 GERD; Liver Problem; iw - PSHx: 13:02 None; iw - Immunization history:: Adult Immunizations Adult Immunizations up to date. - Social history:: Smoking status: Patient denies any tobacco usage or history of. ROS: 15:37 Constitutional: Negative for fever, chills, and weight loss, Eyes: Negative for injury, maria dolores pain, redness, and discharge, ENT: Negative for injury, pain, and discharge, Neck: Negative for injury, pain, and swelling, Cardiovascular: Negative for chest pain, palpitations, and edema, Respiratory: Negative for shortness of breath, cough, wheezing, and pleuritic chest pain, Back: Negative for injury and pain, : Negative for injury, bleeding, discharge, and swelling, MS/Extremity: Negative for injury and deformity, Skin: Negative for injury, rash, and discoloration, Neuro: Negative for headache, weakness, numbness, tingling, and seizure, Psych: Negative for depression, anxiety, suicide ideation, homicidal ideation, and hallucinations, Allergy/Immunology: Negative for hives, rash, and allergies, Endocrine: Negative for neck swelling, polydipsia, polyuria, polyphagia, and marked weight changes, Hematologic/Lymphatic: Negative for swollen nodes, abnormal bleeding, and unusual bruising, 15:37 Abdomen/GI: Positive for abdominal pain, nausea and vomiting, diarrhea, abdominal cramps, abdominal distension, of the epigastric area, right upper quadrant, left upper quadrant, right lower quadrant and left lower quadrant, Exam: 15:37 Constitutional: This is a well developed, well nourished patient who is awake, alert, maria dolores and in no acute distress. Head/Face: Normocephalic, atraumatic. Eyes: Pupils equal round and reactive to light, extra-ocular motions intact. Lids and lashes normal. Conjunctiva and sclera are non-icteric and not injected. Cornea within normal limits. Periorbital areas with no swelling, redness, or edema. ENT: Nares patent. No nasal discharge, no septal abnormalities noted. Tympanic membranes are normal and external auditory canals are clear. Oropharynx with no redness, swelling, or masses, exudates, or evidence of obstruction, uvula midline. Mucous membranes moist. Neck: Trachea midline, no thyromegaly or masses palpated, and no cervical lymphadenopathy. Supple, full range of motion without nuchal rigidity, or vertebral point tenderness. No Meningismus. Chest/axilla: Normal chest wall appearance and motion. Nontender with no deformity. No lesions are appreciated. Cardiovascular: Regular rate and rhythm with a normal S1 and S2. No gallops, murmurs, or rubs. Normal PMI, no JVD. No pulse deficits. Respiratory: Lungs have equal breath sounds bilaterally, clear to auscultation and percussion. No rales, rhonchi or wheezes noted. No increased work of breathing, no retractions or nasal flaring. Back: No spinal tenderness. No costovertebral tenderness. Full range of motion. Male : Normal genitalia with no discharge or lesions. Skin: Warm, dry with normal turgor. Normal color with no rashes, no lesions, and no evidence of cellulitis. MS/ Extremity: Pulses equal, no cyanosis. Neurovascular intact. Full, normal range of motion. Neuro: Awake and alert, GCS 15, oriented to person, place, time, and situation. Cranial nerves II-XII grossly intact. Motor strength 5/5 in all extremities. Sensory grossly intact. Cerebellar exam normal. Normal gait. Psych: Awake, alert, with orientation to person, place and time. Behavior, mood, and affect are within normal limits. 15:37 Abdomen/GI: Inspection: distension, Bowel sounds: hyperactive, in all quadrants, Palpation: mild abdominal tenderness, in the epigastric area, suprapubic area, right upper quadrant and left upper quadrant, Liver: no appreciated palpable abnormalities, Hernia: not appreciated, 16:31 ECG was reviewed by the Attending Physician. maria dolores Vital Signs: 12:59 BP 148 / 92; Pulse 79; Resp 16; Temp 98.1; Pulse Ox 99% on R/A; Weight 92.99 kg; Height iw 5 ft. 10 in. ; Pain 4/10; 14:50 BP 128 / 88; Pulse 70; Resp 18; Pulse Ox 100% on R/A; mb9 16:03 BP 133 / 79; Pulse 81; Resp 16; Pulse Ox 100% on R/A; kd3 12:59 Body Mass Index 29.41 (92.99 kg, 177.8 cm) iw 12:59 Pain Scale: Adult iw Hensley Coma Score: 16:31 Eye Response: spontaneous(4). Motor Response: obeys commands(6). Verbal Response: maria dolores oriented(5). Total: 15. MDM: 12:53 Patient medically screened. maria dolores 15:40 Differential diagnosis: Cholelithiasis, diverticulitis, gastritis, gastroesophageal maria dolores reflux disease, GI Bleed, Hepatitis, Irritable bowel syndrome, Mesenteric ischemia or infarction, non-specific abd pain, pancreatitis, Peptic Ulcer Disease, Perf. Duodenal Ulcer, Perf. Gastric Ulcer, urinary tract infection. Data reviewed: vital signs, nurses notes, lab test result(s), EKG, radiologic studies, CT scan. Consideration of Admission/Observation Patient was admitted/placed on observation. Escalation of care including admission/observation considered. I considered the following discharge prescriptions or medication management in the emergency department Medications were administered in the Emergency Department. See MAR. Independent interpretation of the following test(s) in the Emergency Department EKG: See my EKG interpretation above CT Scan: My interpretation is CT AB/PELVIS. Test considered but Not performed: MRI: NO MRCP. Historians other than the Patient: Spouse/Significant Other: WELL INFORMED. Care significantly affected by the following chronic conditions: Liver Disease, GERD, COLITIS. Counseling: I had a detailed discussion with the patient and/or guardian regarding the historical points, exam findings, and any diagnostic results supporting the discharge/admit diagnosis, lab results, radiology results, the need for further work-up and treatment in the hospital. 06/21 12:54 Order name: CBC with Diff; Complete Time: 14:00 [facility] 06/21 12:54 Order name: CMP; Complete Time: 14:00 [facility] 06/21 12:54 Order name: Lipase; Complete Time: 14:00 [facility] 06/21 12:54 Order name: Urinalysis w/ reflexes; Complete Time: 14:00 [facility] 06/21 15:14 Order name: AMMONIA; Complete Time: 16:30 [facility] 06/21 15:14 Order name: PT-INR; Complete Time: 15:45 [facility] 06/21 15:16 Order name: Fecal Leukocyte Stain [facility] 06/21 15:16 Order name: Stool Culture [facility] 06/21 15:16 Order name: CDIFF [facility] 06/21 15:18 Order name: Lactate w/ 2H reflex if indic.; Complete Time: 16:30 [facility] 06/21 16:13 Order name: CBC with Automated Diff [facility] 06/21 16:13 Order name: CBC with Automated Diff [facility] 06/21 16:13 Order name: Comprehensive Metabolic Panel [facility] 06/21 16:13 Order name: Comprehensive Metabolic Panel [facility] 06/21 12:54 Order name: CT Abd/Pelvis - IV Contrast Only; Complete Time: 15:13 [facility] 06/21 15:40 Order name: EKG; Complete Time: 15:40 [facility] 06/21 16:13 Order name: CONS Physician Consult [facility] 06/21 12:54 Order name: IV Saline Lock; Complete Time: 13:12 [facility] 06/21 12:54 Order name: Labs collected and sent; Complete Time: 13:12 [facility] 06/21 15:40 Order name: EKG - Nurse/Tech; Complete Time: 16:03 [facility] EC:31 Rate is 69 beats/min. Rhythm is regular. QRS Royal is Normal. LA interval is normal. QRS maria dolores interval is normal. QT interval is normal. No Q waves. T waves are Normal. No ST changes noted. Clinical impression: NSR w/ Non-specific ST/T Changes and No evidence of ischemia. Interpreted by me. Reviewed by me. Administered Medications: 14:08 Drug: Ondansetron IVP 4 mg IVP once; over 2 minutes Route: IVP; Site: left antecubital; mb9 17:00 Follow up: Response: No adverse reaction mb9 14:10 Drug: Famotidine IVP 20 mg IVP once; dilute with 10 mL 0.9% NaCl; give over 2 minutes mb9 Route: IVP; Site: left antecubital; 15:00 Follow up: Response: No adverse reaction mb9 14:12 Drug: NS 0.9% IV 1000 ml IV at 1 bolus Per protocol; 1000 mL bolus Route: IV; Rate: 1 mb9 bolus; Site: left antecubital; 16:00 Follow up: Response: No adverse reaction mb9 17:00 Follow up: Response: No adverse reaction; IV Status: Completed infusion mb9 14:13 Drug: morphine IVP or IV 4 mg IVP once over 4 mins Route: IVP; Infused Over: 4 mins; mb9 Site: left antecubital; 20:40 Follow up: Urine output 1700 ml mb9 15:32 Drug: metroNIDAZOLE IVPB 500 mg 100 ml IVPB at 200 ml/hr once over 30 mins Volume: 100 kd3 ml; Route: IVPB; Rate: 200 ml/hr; Infused Over: 30 mins; Site: right antecubital; 16:03 Follow up: Response: No adverse reaction; IV Status: Completed infusion kd3 16:03 Drug: Ciprofloxacin IVPB 400 mg 200 ml IVPB once over 60 mins Volume: 200 ml; Route: kd3 IVPB; Infused Over: 60 mins; Site: left antecubital; 17:10 Follow up: Response: No adverse reaction; IV Status: Completed infusion mb9 Disposition Summary: 06/22/23 15:44 Hospitalization Ordered Notes: Hospitalization Status: Inpatient Admission maria dolores Provider: Margarito Hebert cha Location: Telemetry/MedSurg (Inpatient) maria dolores Condition: Fair maria dolores Problem: new maria dolores Symptoms: have improved maria dolores Bed/Room Type: Standard maria dolores Room Assignment: 421(06/22/23 16:34) eb Diagnosis - Epigastric abdominal tenderness maria dolores - Left sided colitis maria dolores - Vomiting maria dolores - Unspecified cirrhosis of liver - ADVANCED maria dolores Forms: - Medication Reconciliation Form maria dolores - SBAR form maria dolores - Leadership Thank You Letter maria dolores Signatures: Dispatcher [employer] Kenan Dye MD MD cha Williams, Irene, RN RN iw Botello, Elizabeth eb Doucette, Kyli, RN RN kd3 Abigail Avitia RN RN mb9 Corrections: (The following items were deleted from the chart) 16:34 15:44 maria dolores crawley
[2023-06-22] MEDS ORDERED: ACETAMINOPHEN 500 MG TAB PO PRN (16:07)
[2023-06-22] MEDS ORDERED: ONDANSETRON 4 MG/2 ML VIAL IV PRN (16:07)
--- NOTE | 2023-06-22 16:17 | P.HP ---
Certification for Inpatient Patient admitted to: Observation With expected LOS: <2 Midnights Patient will require the following post-hospital care: None Practitioner: I am a practitioner with admitting privileges, knowledge of patient current condition, hospital course, and medical plan of care. Services: Services provided to patient in accordance with Admission requirements found in Title 42 Section 412.3 of the Code of Federal Regulations Patient History Date of Service: 06/22/23 Reason for admission: Abdominal pain History of Present Illness: Patient is a 57-year-old gentleman came to the hospital with vague abdominal pain. Patient states that he has had pain around the suprapubic region. He was treated for ESBL E. coli for about 2 weeks. He was given meropenem through a PICC line. After his treatment he was doing okay but he still felt nagging pain around the suprapubic region. The pain was not going away so he came into the emergency room for further evaluation. In the emergency room patient had CT imaging which revealed patient had transverse and ascending colitis. Patient has not had a colonoscopy in quite a while. He recently was treated with IV antibiotics so we will go ahead and check him for C. difficile and check a fecal leukocytes. Will continue with IV hydration and IV inflammatory medications. Patient will be started on oral vancomycin. Patient will be admitted for observation. Allergies No Known Allergies Allergy (Unverified 05/25/23 18:24) Home Medications: Lactulose 30 ml PO DAILY 05/25/23 Pantoprazole Sodium [Protonix] 1 tab PO DAILY 05/25/23 Pantoprazole [Protonix Tab*] 40 mg PO DAILY tab 05/28/23 - Past Medical/Surgical History Diabetic: No -: Cirrhosis -: GERD -: Nonalcoholic steatohepatitis -: Cardiac catheterization with stent placement - Family History Father Medical History: Cancer - Social History Smoking Status: Former smoker Alcohol use: No CD- Drugs: No Caffeine use: Yes Review of Systems 10-point ROS is otherwise unremarkable Physical Examination - Vital Signs Temperature: 99 F Blood Pressure: 140/80 Pulse: 90 Respirations: 18 Pulse Ox (%): 95 - Physical Exam General: Alert, In no apparent distress, Oriented x3 HEENT: Atraumatic, PERRLA, Mucous membr. moist/pink, EOMI, Sclerae nonicteric Neck: Supple, 2+ carotid pulse no bruit, No LAD, Without JVD or thyroid abnormality Respiratory: Clear to auscultation bilaterally, Normal air movement Cardiovascular: Regular rate/rhythm, Normal S1 S2 Gastrointestinal: Normal bowel sounds, No ascites, Absent bowel sounds, Tenderness Musculoskeletal: No clubbing, No swelling, No tenderness Integumentary: No rashes Neurological: Normal gait, Normal speech, Normal strength at 5/5 x4 extr, Normal tone, Sensation intact, Cranial nerves 3-12 intact, Normal affect Lymphatics: No axilla or inguinal lymphadenopathy - Studies Laboratory Data (last 24 hrs) 06/22/23 06/22/23 06/22/23 15:26 13:11 13:11 WBC 8.30 Hgb 13.9 Hct 40.8 Plt Count 155 PT 15.7 H INR 1.44 Sodium 139 Potassium 3.7 BUN 8 Creatinine 0.79 Glucose 161 H Total Bilirubin 1.1 H AST 40 H ALT 38 Alkaline Phosphatase 86 Lipase 18 Assessment & Plan - Problems (Diagnosis) (1) Colitis Current Visit: Yes Status: Acute (2) History of ESBL E. coli infection Current Visit: Yes Status: Acute (3) Nonalcoholic steatohepatitis Current Visit: Yes Status: Acute (4) Presence of stent in coronary artery in patient with coronary artery disease Current Visit: Yes Status: Acute - Plan Plan: 1. Patient has a history of ESBL E. coli and was recently treated with meropenem. Afterwards patient recovered completely. Patient denies any diarrhea or nausea and vomiting. He just has some vague abdominal pain mainly in the suprapubic region. There is no rebound or guarding. Bowel sounds are hypoactive. At this time, patient will be admitted to the hospital for observation. Patient does not have any significant symptoms that require inpatient hospitalization. Will go ahead and check stool studies while he is in the hospital and will treat him with oral antibiotic therapy. Patient does not warrant inpatient hospitalization. Patient needs to follow-up with gastroenterology for colonoscopy. 2. Nonalcoholic steatohepatitis; patient with mildly elevated bilirubin. Patient can follow-up with GI for colonoscopy and also get his liver function evaluated further. No aggressive intervention at this time. 3. GI DVT prophylax Discharge Plan: Home Plan to discharge in: 24 Hours - Advance Directives Does patient have a Living Will: No Does patient have a Durable POA for Healthcare: No - Code Status/Comfort Care Code Status Assessed: Yes Code Status: Full Code Critical Care: No Time Spent Managing PTS Care (In Minutes): 45
[2023-06-22] MEDS: VANCOMYCIN HCL 125 MG CAPSULE PO SCH (18:12)
[2023-06-22] MEDS: METHYLPREDNISOLONE 40 MG INJ IV SCH (18:12)
[2023-06-22] MEDS: NA CHLORIDE 0.9% 1,000 ML IV SCH (18:12)
[2023-06-22 18:29] VITALS: BMI 29.4
[2023-06-22 20:38] LABS: STOOL CONSISTENCY Formed/Solid (soft)
[2023-06-22 20:39] LABS: C.diff Antigen/Toxin Ag pos : Tox pos (NEG : NEG); CDIFF INTERNAL NEG CONTROL White Background (WHITE BKGD)
[2023-06-22 23:47] VITALS: O2SAT 96
[2023-06-23 04:31] LABS: Absolute Lymphocytes (CBC) 0.8 K/uL (0.7-4.9); Absolute Monocytes 0.1 K/uL (0.1-1.3); Absolute Neutrophil 6.8 K/uL (1.8-8.0); Basophils % 0.1 % (0-1.3); Eosinophils % 0.1 % (0-4.4); Hematocrit 38.8 % (39.6-49.0); Hemoglobin 13.6 g/dL (13.6-17.9); Lymphocytes % 10.2 % (15.3-44.8); MCH 31.2 pg (27.0-35.0); MCHC 35.1 g/dL (32.0-36.0); Monocytes % 1.3 % (3.3-12.3); Neutrophils % 88.3 % (41.7-73.7); Platelets 135 thou/uL (152-406); RBC Red Blood Cell Count 4.36 M/uL (4.33-5.43); Red Cell Distribution Width 13.7 % (12.1-15.2)
[2023-06-23 04:45] LABS: Albumin 3.2 g/dL (3.4-5.0); Albumin/Globulin Ratio 0.8 (1.1-1.8); Anion Gap 7.9 mEq/L (5.0-15.0); Bilirubin Total 0.8 mg/dL (0.2-1.0); Globulin 4.2 g/dL (2.3-3.5); Potassium 3.9 mEq/L (3.5-5.1); Protein, Total 7.4 g/dL (6.4-8.2)
[2023-06-23 06:39] VITALS: BP 131/77; TEMP 97.8
--- NOTE | 2023-06-23 10:12 | P.PN ---
Subjective Date of Service: 06/23/23 Chief Complaint: RLQ/LLQ abdominal pain Subjective: Improving (States he feels much better today. In isolation due to colitis after taking antibiotics for UTI, possible C diff. Reports recent colonoscopy.) Review of Systems 10-point ROS is otherwise unremarkable Gastrointestinal: Abdominal Pain (Improved.) Physical Examination - Vital Signs Temperature: 97.8 F Blood Pressure: 131/77 Pulse: 62 Respirations: 16 Pulse Ox (%): 92 - Physical Exam General: Alert, In no apparent distress, Oriented x3 HEENT: Atraumatic, Normocephalic, PERRLA, EOMI Neck: Supple Respiratory: Normal air movement Cardiovascular: Normal pulses Gastrointestinal: Soft and benign, No tenderness, No rebound, No guarding Neurological: Normal speech, Normal strength at 5/5 x4 extr - Studies Laboratory Data (last 24 hrs) 06/22/23 06/22/23 06/22/23 15:26 13:11 13:11 WBC 8.30 Hgb 13.9 Hct 40.8 Plt Count 155 PT 15.7 H INR 1.44 Sodium 139 Potassium 3.7 BUN 8 Creatinine 0.79 Glucose 161 H Total Bilirubin 1.1 H AST 40 H ALT 38 Alkaline Phosphatase 86 Lipase 18 Assessment And Plan - Current Problems (Diagnosis) (1) Abnormal CT of the abdomen Current Visit: Yes Status: Acute (2) RLQ abdominal pain Current Visit: Yes Status: Acute Comment: Improved. (3) LLQ abdominal pain Current Visit: Yes Status: Acute (4) Colitis Current Visit: Yes Status: Acute - Plan REC: 1) continue po Vancomycin & await stool studies 2) continue prn pain medications 3) continue IVFs 4) continue po diet
--- NOTE | 2023-06-25 08:01 | CON ---
Date of Consultation: 06/22/2023 Reason For Consultation: Colitis with right and left lower quadrant pain over the past [address] scan revealing colitis. History Of Present Illness: This patient is a 57-year-old male with history of cirrhosis, p rior alcohol abuse, and gastroesophageal reflux disease. The patient came to the hospital due to per sistent right and left lower quadrant pain, max was 7/10, now down to p.r.n. pain medicine s in the emergency room. His lower abdominal pain has been ongoing for the past 2 weeks status post IV meropenem treatment for urinary tract infection with E coli isolated from the urine. The patient had a CT scan in the emergency room, which revealed colitis from the transverse colon down to the rec maia involving the left colon. He reports a colonoscopy in 2021, at [facility] that he says wa s negative by his recall today. Past Medical History: Significant for cirrhosis, nonalcoholic steatohepatitis, gastroesophageal refl ux disease, alcohol abuse, cardiac catheterization with stent placement in the past. Social History: He is , 1 daughter. No tobacco. No alcohol currently, though he has had a p rior alcohol abuse history. Family History: Father of brain cancer. Mother is alive, with arthritis. Home Medications: Include lactulose, Protonix. Allergies: NKDA. Review of Systems: Patient has right and left lower quadrant pain, postprandial pain, decreased p.o. intake secondary to the pain he has been having every time he eats "sitophobia." The patient denies any change in bowel habits, diarrhea, constipation, muscle aches, joint aches, backaches, fevers, chills, night sweats, change in weight. Family History: Colon cancer, colon polyps, or any type of upper GI. Family History: No inflammatory bowel disease history in his family or other. Physical Examination: General: The patient is afebrile. Vital Signs: He is 5 feet 10 inches, 205 pounds. BMI of 29.4 kg/m2. He has a temperature of 98.4 d egrees Fahrenheit, pulse 72, respirations 18, blood pressure 150/90, O2 saturation 97%. HEENT: Normocephalic, atraumatic. Anicteric. Pupils equal, round, and reactive to light. Extraocu lar movements are intact. Oropharynx clear. Neck: Supple. No masses. Respirations: Clear to auscultation bilaterally. Cardiac: Regular rate and rhythm. No gallops or rubs. Abdomen: Positive bowel sounds. Soft, nondistended. Some tenderness in the right and left lower qu adrant areas of the abdomen and he points more toward the suprapubic area, but he says it extends to the right and left. No peritoneal or Lerner sign. No rebound. Extremities: No clubbing, cyanosis, or edema. 2+ pulses. Neuro: Alert and oriented x3. Grossly nonfocal. 5/5 motor sensation intact to light touch. Laboratory Data: The patient has a white count of 8.3, hemoglobin of 13.9, hematocrit 41, MCV of 90, platelet count of 155, polys 65%, lymphocytes 21%, monocytes 3%, eosinophils 5%. PT of 15.7, INR of 1.4. Sodium 139, potassium 3.7, chloride 105, bicarb 30, BUN of 8, creatinine of 0.8, glucose 161, lactic acid of 1.2, calcium 8.5, total bilirubin 1.1, AST of 40, ALT of 38, alkaline phosphatase 86, ammonia 33, total protein 7.7, albumin 3.3, globulin elevated at 4.4, lipase 18. UA shows some trace blood, otherwise negative. CT scan shows colitis pattern present with mild to moderate in severity involving the transverse colo n as well as the descending colon and rectosigmoid colon, so that is [id number] colitis from th e rectum to the transverse colon. There does not appear to be colitis in the ascending colon or cecu m. So left-sided colitis from the rectum to the transverse colon on the CT scan. Colitis after antibiotics for UTI including meropenem for refractory urinary tract infecti on. The patient has subsequent right and left upper quadrant pain, maximum 10 p.r.n. pa in medicines in the emergency room. This pain has been present over the past few weeks and the pain increases postprandially, why patient has been avoiding food recently and finally came to the hospital for evaluation. CT scan revealed colitis of the left colon from the rectum to the trans verse colon. He reports colonoscopy in 2021 at [facility] that was negative. History of cirrhosis with prior alcohol abuse history and reflux disease and others per above. Recommendations: 1.Check stool studies. Continue IV fluids. Agree with p.o. vancomycin in the setting of a patient having colitis after IV antibiotics for prolonged period of time. 2.Continue p.r.n. pain medicines. 3.Consider colonoscopy as outpatient. APRIL/PETER Voice ID: [id number] Report ID: [id number]
--- NOTE | 2023-06-25 14:25 | EKG ---
Test Date: 2023-06-22 Test Time: 15:52:50 [employer]: ROBERT MEASUREMENT RESULTS: Intervals: Rate: 69 [place]: 174 QRSD: 90 QT: 400 QTc: 428 [place]: P: 30 [place]: 174 QRS: 30 T: 32 INTERPRETIVE STATEMENTS: Normal sinus rhythm Cannot rule out Anterior infarct, age undetermined Abnormal ECG Compared to ECG 05/25/2023 14:31:40 No significant changes Electronically Signed On 06-25-23 14:16:19 CDT by Flo Gann
== END 2023-06-23 13:25 | disposition home or self-care (01) ==
LOC: ER 12:50 → ERHOLD 16:07 → 4TH 16:39
PROVIDERS: ADMIT Hospitalist; ATTEND Hospitalist
DX: K52.9 Noninfective gastroenteritis and colitis, unspecified (principal); K75.81 Nonalcoholic steatohepatitis (NASH); I25.10 Atherosclerotic heart disease of native coronary artery without angina pectoris; R93.5 Abnormal findings on diagnostic imaging of other abdominal regions, including retroperitoneum; R10.32 Left lower quadrant pain; R10.31 Right lower quadrant pain; Z95.5 Presence of coronary angioplasty implant and graft; Z80.0 Family history of malignant neoplasm of digestive organs; Z79.2 Long term (current) use of antibiotics
CPT/HCPCS: 93005; 87045; 85025 ×2; 81001; 36415; 82140; 89055; 85610; 87046; 83605; 87324; 83690; 80053 ×2; 74177; 99285; Q9967; J2405; J0744; J7030 ×3; J2920 ×3; G0378 ×3